=== PATIENT | male | born 1945 | race Caucasian/White ===

== ENCOUNTER → 2018-03-10 | Outpatient (CLI) | payer OTHER ==
[~2018-03-10] MED LIST: AMARYL4 MG PO; ANTIBIOTIC O500 U/GM TP; ASPIRIN81 M1 PO; CEPHALEXIN500 M1 PO; LISINOPRIL/HCTZ1 TA3 PO; METFORMIN1000 MG PO; ZOCOR20 MG PO
== END | disposition home or self-care (01) ==
LOC: RAD 08:11
DX: M54.41 Lumbago with sciatica, right side (principal); M25.551 Pain in right hip

== ENCOUNTER → 2019-03-20 | Outpatient (CLI) | payer OTHER ==
[2019-03-20 11:35] LABS: HEMATOCRIT 43.9 % (42.0-52.0); MEAN CELL VOLUME 86.4 fl (80.0-94.0); MEAN CORPUSCULAR HGB 27.6 pg (27.0-31.0); MEAN CORPUSCULAR HGB CONC 31.9 g/dl (33.0-37.0); MEAN PLATELET VOLUME 10.9 fl (9.6-12.3); RED BLOOD COUNT 5.08 10*6/uL (4.50-5.90); RED CELL DISTRI WIDTH 14.4 % (0-14.5); WHITE BLOOD COUNT 8.4 10*3/uL (4.8-10.8)
[2019-03-20 11:53] LABS: ALBUMIN 3.9 gm/dl (3.1-4.5); CREATININE 1.46 mg/dL (0.70-1.30); POTASSIUM 4.7 mmol/L (3.5-5.1); TOTAL PROTEIN 7.9 gm/dL (6.4-8.2)
== END | disposition home or self-care (01) ==
LOC: LAB 10:55
PROVIDERS: Physician Assistant
DX: Z12.5 Encounter for screening for malignant neoplasm of prostate (principal); I12.9 Hypertensive chronic kidney disease with stage 1 through stage 4 chronic kidney disease, or unspecified chronic kidney disease; E11.22 Type 2 diabetes mellitus with diabetic chronic kidney disease; N18.3 Chronic kidney disease, stage 3 (moderate); E53.8 Deficiency of other specified B group vitamins